=== PATIENT | male | born 1975 | race Caucasian/White ===

== ENCOUNTER 2017-12-30 05:36 | Day surgery (SDC) | payer MEDICARE, BC ==
[~2017-12-30] VITALS: Ht 190.5 cm; Wt 87.3 kg
[2017-12-30] MEDS ORDERED: LACTATED RINGERS 1,000 ML IV SCH (06:13)
[2017-12-30] MEDS ORDERED: ATEN50TA41 PO (06:14)
[2017-12-30] MEDS ORDERED: LOSA50TA6 PO (06:14)
[2017-12-30] MEDS ORDERED: ATOR20TA9 PO (06:14)
[2017-12-30 06:50] VITALS: BP 116/78
[2017-12-30 06:53] LABS: BASOPHILS # (AUTO) 0.06 x10^3/uL (0-0.1); BASOPHILS % (AUTO) 1 % (0-1); EOSINOPHILS % (AUTO) 5 % (1-7); LYMPHOCYTES # (AUTO) 1.21 x10^3/uL (1-3.4); LYMPHOCYTES % (AUTO) 29 % (22-44); MD NO; MEAN CORPUSCULAR HEMOGLOBIN 29.6 pg (27.5-34.5); MEAN CORPUSCULAR HGB CONC 33.8 g/dL (33.2-36.2); MEAN CORPUSCULAR VOLUME 87.7 fL (81-97); MEAN PLATELET VOLUME 8.8 fL (7.4-10.4); MONOCYTES # (AUTO) 0.51 x10^3/uL (0.2-0.8); MONOCYTES % (AUTO) 12 % (2-9); NEUTROPHILS # (AUTO) 2.18 x10^3/uL (1.8-6.8); NEUTROPHILS % (AUTO) 53 % (42-75); PLATELET COUNT 130 x10^3/uL (130-400); RED BLOOD COUNT 5.09 x10^6/uL (4.38-5.82); RED CELL DISTRIBUTION WIDTH 15.5 % (9.4-14.8)
[2017-12-30 07:03] LABS: INTERNATIONAL NORMALIZED RATIO 0.99 (0.93-1.1); PROTHROMBIN TIME 10.3 Seconds (9.6-11.5)
[2017-12-30 07:04] LABS: ALANINE AMINOTRANSFERASE 23 U/L (12-78); ALBUMIN 3.5 g/dL (3.4-5.0); ANION GAP 13 mmol/L (5-15); CHLORIDE 97 mmol/L (98-107); CREATININE 8.98 mg/dL (0.7-1.3)
[2017-12-30 07:06] LABS: ALKALINE PHOSPHATASE 189 U/L (45-117); BILIRUBIN,TOTAL 0.5 mg/dL (0.2-1.0); TOTAL PROTEIN 7.5 g/dL (6.4-8.2)
[2017-12-30] MEDS ORDERED: CHLORHEXIDINE 15 ML BOTTLE MM ONE (07:30)
[2017-12-30] MEDS ORDERED: PHENYLEPHRINE 10 MG/ML ONE (07:34)
[2017-12-30] MEDS ORDERED: PROPOFOL 10 MG/ML, 20ML ONE (07:34)
[2017-12-30] MEDS ORDERED: KETAMINE 10 MG/ML, 20ML ONE (07:34)
[2017-12-30] MEDS ORDERED: FENTANYL PF 100 MCG/2ML IV PRN (08:00)
[2017-12-30] MEDS ORDERED: PROMETHAZINE 25 MG/ML, 1ML IV PRN (08:00)
[2017-12-30] MEDS ORDERED: ACETAMINOPHEN 325 MG TABLET PO PRN (08:00)
[2017-12-30] MEDS ORDERED: MEPERIDINE/PF 25MG/0.5ML IVPush PRN (08:00)
[2017-12-30] MEDS ORDERED: OXYcodone 5 MG/5 ML ORAL.SOL UDC PO PRN (08:00)
[2017-12-30] MEDS ORDERED: MORPHINE SULFATE 4 MG/ML, 1ML IVPush PRN (08:00)
[2017-12-30] MEDS ORDERED: MIDAZOLAM 1 MG/ML, 2ML ONE (08:03)
[2017-12-30] MEDS ORDERED: FENTANYL PF 100 MCG/2ML ONE (08:03)
== END 2017-12-30 09:30 ==
LOC: OUT 05:36
PROVIDERS: ATTEND Internal Medicine Gastroenterology
DX: K31.7 Polyp of stomach and duodenum (principal); K25.9 Gastric ulcer, unspecified as acute or chronic, without hemorrhage or perforation; K21.9 Gastro-esophageal reflux disease without esophagitis; I12.0 Hypertensive chronic kidney disease with stage 5 chronic kidney disease or end stage renal disease; N18.6 End stage renal disease
CPT/HCPCS: 36415; 80053; 85025; 85610; 85730; 88305; 93005; J2250; J2704; J3010; J2370; J7120